=== PATIENT | female | born 1945 | race Caucasian/White ===

== ENCOUNTER → 2018-09-16 | Outpatient (CLI) | payer MEDICARE, OTHER ==
--- NOTE | 2018-09-19 12:48 | MM ---
Reason for exam: screening (asymptomatic). Last mammogram was performed 3 years and 2 months ago. History: Patient is postmenopausal and is nulliparous. Family history of breast cancer in maternal cousin. Benign left mammotome panel of the left breast, May 18, 2012. Benign core biopsy of the right breast. MG Screening Mammo w CAD Bilateral CC, MLO, and XCCL view(s) were taken. Prior study comparison: July 28, 2015, bilateral MG screening mammo w CAD. June 20, 2014, bilateral MG diagnostic mammo w CAD ELOISA. There are scattered fibroglandular densities. Bilateral previous mammotome biopsies. Benign vascular calcifications. No significant changes when compared with prior studies. ASSESSMENT: Negative, BI-RAD 1 RECOMMENDATION: Routine screening mammogram of both breasts in 1 year.
== END ==
LOC: RADMAMWWP 10:30
PROVIDERS: ATTEND Family Medicine
DX: Z12.31 Encounter for screening mammogram for malignant neoplasm of breast (principal)
CPT/HCPCS: 77067

== ENCOUNTER → 2020-11-03 | Outpatient (CLI) | payer MEDICARE ==
[2020-11-03 10:27] LABS: ALT 17 U/L (4-34); AST 20 U/L (14-36); Cholesterol 136 mg/dL (<200); HDL Cholesterol 47 mg/dL (40-60); LDL Cholesterol,Calculated 73 mg/dL (0-99); Triglycerides 79 mg/dL (<150)
== END | disposition home or self-care (01) ==
LOC: LABWHC1 08:49
PROVIDERS: ATTEND Internal Medicine Cardiovascular Disease
DX: E78.2 Mixed hyperlipidemia (principal)
CPT/HCPCS: 36415; 80061; 84450; 84460

== ENCOUNTER → 2022-05-17 | Outpatient (CLI) | payer MEDICARE ==
[2022-05-17 19:12] LABS: ALT 11 U/L (8-44); AST 17 U/L (13-35); Chol/HDL Ratio 3.27 Ratio; LDL Cholesterol,Calculated 71.9 mg/dL (0.0-131.0)
== END | disposition home or self-care (01) ==
LOC: LABWHC1 10:38
PROVIDERS: ATTEND Internal Medicine Cardiovascular Disease
DX: E78.2 Mixed hyperlipidemia (principal)
CPT/HCPCS: 36415; 80061; 84450; 84460

== ENCOUNTER → 2023-12-17 | Outpatient (CLI) | payer MEDICARE ==
[2023-12-17 16:00] LABS: ALT 13 U/L (8-44); AST 19 U/L (13-35); Chol/HDL Ratio 2.87 Ratio; LDL Cholesterol,Calculated 67.8 mg/dL (0.0-131.0)
== END | disposition home or self-care (01) ==
LOC: LABWHC1 09:15
PROVIDERS: ATTEND Internal Medicine Cardiovascular Disease
DX: E78.2 Mixed hyperlipidemia (principal)
CPT/HCPCS: 36415; 80061; 84450; 84460

== ENCOUNTER 2024-12-07 09:25 | Emergency (ER) | payer MEDICARE, OTHER ==
[2024-12-07 09:38] LABS: Glucose,Whole Blood 78 mg/dL (70-110)
[2024-12-07 09:57] LABS: Basophils # (A) 0.02 10*3/uL (0.00-0.10); Basophils % (A) 0.2 %; Eosinophils # (A) 0.21 10*3/uL (0.04-0.35); Eosinophils % (A) 2.1 %; HCT 37.7 % (37.2-46.3); HGB 12.6 g/dL (12.0-15.0); Lymphocytes # (A) 0.85 10*3/uL (0.90-5.00); Lymphocytes % (A) 8.3 %; MCH 28.6 pg (27.0-32.0); MCHC 33.4 g/dL (32.0-37.0); MCV 85.5 fL (80.0-97.0); Mean Platelet Volume 8.4 fL (9.5-12.2); Monocytes # (A) 0.52 10*3/uL (0.20-1.00); Monocytes % (A) 5.1 %; Neutrophils # (A) 8.56 10*3/uL (1.80-7.70); Neutrophils % (A) 83.8 %; Platelet Count 251 10*3/uL (140-440); RBC 4.41 10*6/uL (4.10-5.20); WBC 10.21 10*3/uL (4.50-10.00)
[2024-12-07 10:09] LABS: African American GFR (CKD) 79 (>60 ml/min/1.73 sqM); Anion Gap 8 mmol/L; Blood Urea Nitrogen 14 mg/dL (7-17); Calcium 9.5 mg/dL (8.4-10.2); Carbon Dioxide 30 mmol/L (22-30); Chloride 101 mmol/L (98-107); Glucose 76 mg/dL (74-99); Non-African American GFR(CKD) 68 (>60 ml/min/1.73 sqM); Potassium 3.7 mmol/L (3.5-5.1); Sodium 139 mmol/L (137-145)
[2024-12-07 10:13] LABS: Glucose,Whole Blood 126 mg/dL (70-110)
--- NOTE | 2024-12-07 10:35 | ED ---
General Adult HPI - General Chief complaint: Recheck/Abnormal Lab/Rx Stated complaint: abn labs Time Seen by Provider: 12/07/24 09:33 Source: patient, EMS Mode of arrival: EMS - History of Present Illness Initial comments: Dictation was produced using [employer] dictation software. please excuse any grammatical, word or spelling errors. Chief Complaint: 79-year-old female brought in for hypoglycemia History of Present Illness: Patient 79-year-old female presents the emergency d epartment hypoglycemia. Patient took her insulin and also Ozempic. She did eat however niece found patient altered. EMS was called. EMS reported that patient's blood sugar was low. They gave her 2 rounds of oral glucose with stabilization of blood sugar. Patient states she takes NovoLog. Patient denies any symptoms at the bedside. The ROS documented in this emergency department record has been reviewed and confirmed by me. Those systems with pertinent positive or negative responses have been documented in the HPI. All other systems are other negative and/or noncontributory. - Related Data Home Medications Medication Instructions Recorded Confirmed Aspirin [Children's Aspirin] 81 mg PO DAILY 08/06/17 01/16/22 Atenolol/Chlorthalidone 1 tab PO DAILY 08/06/17 01/16/22 [Atenolol-Chlorthalidone 50-25] Bimatoprost [Lumigan .01% Ophth 1 drop BOTH EYES HS 08/06/17 01/16/22 Soln] Budesonide/Formoterol Fumarate 1 puff INHALATION BID 08/06/17 01/16/22 [Symbicort 80-4.5 Mcg Inhaler] Ferrous Sulfate 140 mg PO DAILY 08/06/17 01/16/22 Furosemide [Lasix] 20 mg PO DAILY 08/06/17 01/16/22 Gabapentin [Neurontin] 100 mg PO QID 08/06/17 01/16/22 Insuln Asp Prt/Insulin Aspart 35 unit SQ HS 08/06/17 01/16/22 [NovoLOG MIX 70-30 VIAL] Insuln Asp Prt/Insulin Aspart 70 unit SQ QAM 08/06/17 01/16/22 [NovoLOG MIX 70-30 VIAL] Isosorbide Mononitrate ER [Imdur] 30 mg PO QAM 08/06/17 01/16/22 Levothyroxine Sodium 25 mcg PO QAM 08/06/17 01/16/22 Losartan [Cozaar] 50 mg PO W/SUPPER 08/06/17 01/16/22 Lovastatin [Mevacor] 40 mg PO W/SUPPER 08/06/17 01/16/22 Potassium Chloride [Klor-Con 10] 10 meq PO TID 08/06/17 01/16/22 rOPINIRole HCL [Requip] 0.25 mg PO HS 08/06/17 01/16/22 Ergocalciferol [Vitamin D2 (1250 2,500 mcg PO Q30D 01/16/22 01/16/22 Mcg = 52552 Iu)] Omeprazole 20 mg PO DAILY 01/16/22 01/16/22 allopurinoL [Zyloprim] 100 mg PO DAILY 01/16/22 01/16/22 Allergies Allergy/AdvReac Type Severity Reaction Status Date / Time No Known Allergies Allergy Verified 01/16/22 15:31 Review of Systems ROS Statement: Those systems with pertinent positive or pertinent negative responses have been documented in the HPI. ROS Other: All systems not noted in ROS Statement are negative. Past Medical History Past Medical History: Dementia, Diabetes Mellitus, Eye Disorder, Hyperlipidemia, Hypertension, Thyroid Disorder Additional Past Medical History / Comment(s): Glaucoma. Sinus problems. Neuropathy in feet. History of Any Multi-Drug Resistant Organisms: None Reported Past Surgical History: Orthopedic Surgery Additional Past Surgical History / Comment(s): Carpal tunnel surgery, bilateral cataracts surgery. Past Anesthesia/Blood Transfusion Reactions: No Reported Reaction Date of Last Stent Placement:: unk Past Psychological History: No Psychological Hx Reported Smoking Status: Never smoker Past Alcohol Use History: None Reported Past Drug Use History: None Reported - Past Family History Mother Family Medical History: Unable to Obtain General Exam - General Exam Comments Initial Comments: PHYSICAL EXAM: General Impression: Alert and oriented x3, not in acute distress HEENT: Normocephalic atraumatic, extra-ocular movements intact, pupils equal and reactive to light bilaterally, mucous membranes moist. Cardiovascular: Heart regular rate and rhythm Chest: Able to complete full sentences, no retractions, no tachypnea Abdomen: abdomen soft, non-tender, non-distended, no organomegaly Musculoskeletal: Pulses present and equal in all extremities, no peripheral edema Motor: no focal deficits noted Neurological: CN II-XII grossly intact, no focal motor or sensory deficits noted Skin: Intact with no visualized rashes Psych: Normal affect and mood Course Vital Signs 12/07/24 12/07/24 12/07/24 09:32 09:42 10:40 Temperature 97.6 F Pulse Rate 89 85 85 Respiratory 18 14 14 Rate Blood Pressure 154/68 131/64 O2 Sat by Pulse 101 H 99 98 Oximetry 12/07/24 11:50 Temperature Pulse Rate 81 Respiratory 12 Rate Blood Pressure 127/54 O2 Sat by Pulse 98 Oximetry EKG Findings - EKG Comments: EKG Findings:: My EKG interpretation: Ventricular rate 82, sinus rhythm. 194, cures 90, QTc 412. No AK prolongation, no QTC prolongation, no ST or T-wave changes noted. Overall, this EKG is unremarkable Medical Decision Making - Medical Decision Making Was pt. sent in by a medical professional or institution ([facility], [employer], urgent care, hospital, or [place] health care facility...) When possible be specific @ -No Did you speak to anyone other than the patient for history (EMS, parent, family, police, friend...)? What history was obtained from this source @ -No Did you review nursing and triage notes (agree or disagree)? Why? @ -I reviewed and agree with nursing and triage notes Were old charts reviewed (outside hosp., previous admission, EMS record, old E KG, old radiological studies, urgent care reports/EKG's, [place] health care facility records)? Report findings @ -No old charts were reviewed Differential Diagnosis (chest pain, altered mental status, abdominal pain women, abdominal pain men, vaginal bleeding, musculoskeletal, weakness, fever, dyspnea, syncope, headache, dizziness, GI bleed, back pain, seizure, CVA, palpatations, mental health)? @ -Differential Altered Mental Status: Hypoglycemia, DKA, hypercapnia, ETOH, overdose, CO poisoning, trauma, myxedema coma, HTN encephalopathy, infection, encephalitis, psychosis, intercranial hemorrhage, hepatic encephalopathy, meningitis, CVA, this is not meant to be an all-inclusive list EKG interpreted by me (3pts min.). @ -See above X-rays interpreted by me (1pt min.). @ -None done CT interpreted by me (1pt min.). @ -None done U/S interpreted by me (1pt. min.). @ -None done What testing was considered but not performed or refused? (CT, X-rays, U/S, labs)? Why? @ -None What meds were considered but not given or refused? Why? @ -None Was smoking cessation discussed for >3mins.? @ -No Were there social determinants of health that impacted care today? How? (Homelessness, low income, unemployed, alcoholism, drug addiction, transportation, low edu. Level, literacy, decrease access to med. care, shelter, rehab)? @ -No Was there de-escalation of care discussed even if they declined (Discuss DNR or withdrawal of care, Hospice)? DNR status @ -No What co-morbidities impacted this encounter? (DM, HTN, Smoking, COPD, CAD, Cancer, CVA, ARF, Chemo, Hep., AIDS, mental health diagnosis, sleep apnea, morbid obesity)? @ -None Was patient admitted / discharged? Hospital course, mention meds given and route, prescriptions, significant lab abnormalities, going to OR and other pertinent info. @ -79-year-old female presents with hyperglycemia. Hypoglycemia corrected by EMS. Patient monitored in the emergency department with stable blood glucose levels. Patient tolerating oral intake. Vitals unremarkable. Labs are within acceptable limits. Patient discharged. They do have a glucometer at home. Return precautions discussed. Did you discuss the management of the patient with other professionals (professionals i.e. , PA, [employer], lab, RT, psych nurse, social worker clinical, manager employee relations, teacher, navy airspace officer, rn case mgr)? Give summary @ -No Was critical care preformed (if so, how long)? @ -No Undiagnosed new problem with uncertain prognosis? @ -No Drug Therapy requiring intensive monitoring for toxicity (Heparin, Nitro, Insulin, Cardizem)? @ -No Were any procedures done? @ -No Diagnosis/symptom? Acute, or Chronic, or Acute on Chronic? Uncomplicated (without systemic symptoms) or Complicated (systemic symptoms)? @ -Hypoglycemic episode Side effects of treatment? @ -No Exacerbation, Progression, or Severe Exacerbation? @ -No Poses a threat to life or bodily function? How? (Chest pain, USA, MS, pneumonia, PE, COPD, DKA, ARF, appy, cholecystitis, CVA, Diverticulitis, Homicidal, Suicidal, threat to staff... and all critical care pts) @ -yes - Lab Data Result diagrams: 12/07/24 09:42 12/07/24 09:42 Lab Results 12/07/24 12/07/24 12/07/24 Range/Units 09:33 09:42 09:42 WBC 10.21 H (4.50-10.00) 10*3/uL RBC 4.41 (4.10-5.20) 10*6/uL Hgb 12.6 (12.0-15.0) g/dL Hct 37.7 (37.2-46.3) % MCV 85.5 (80.0-97.0) fL MCH 28.6 (27.0-32.0) pg MCHC 33.4 (32.0-37.0) g/dL Plt Count 251 (140-440) 10*3/uL MPV 8.4 L (9.5-12.2) fL Immature Gran % (Auto) 0.5 % Neutrophils % 83.8 % Lymphocytes % 8.3 % Monocytes % 5.1 % Eosinophils % 2.1 % Basophils % 0.2 % Immature Gran # 0.05 H (0.00-0.04) 10*3/uL Neutrophils # 8.56 H (1.80-7.70) 10*3/uL Lymphocytes # 0.85 L (0.90-5.00) 10*3/uL Monocytes # 0.52 (0.20-1.00) 10*3/uL Eosinophils # 0.21 (0.04-0.35) 10*3/uL Basophils # 0.02 (0.00-0.10) 10*3/uL Sodium 139 (137-145) mmol/L Potassium 3.7 (3.5-5.1) mmol/L Chloride 101 (98-107) mmol/L Carbon Dioxide 30 (22-30) mmol/L Anion Gap 8 mmol/L BUN 14 (7-17) mg/dL Creatinine 0.82 (0.52-1.04) mg/dL Est GFR (CKD-EPI)AfAm 79 (>60 ml/min/1.73 sqM) Est GFR (CKD-EPI)NonAf 68 (>60 ml/min/1.73 sqM) Glucose 76 (74-99) mg/dL POC Glucose (mg/dL) 78 (70-110) mg/dL POC Glu Customer Consultant ID Boogie Espinozacie Calcium 9.5 (8.4-10.2) mg/dL 12/07/24 12/07/24 12/07/24 Range/Units 10:11 11:11 11:43 WBC (4.50-10.00) 10*3/uL RBC (4.10-5.20) 10*6/uL Hgb (12.0-15.0) g/dL Hct (37.2-46.3) % MCV (80.0-97.0) fL MCH (27.0-32.0) pg MCHC (32.0-37.0) g/dL Plt Count (140-440) 10*3/uL MPV (9.5-12.2) fL Immature Gran % (Auto) % Neutrophils % % Lymphocytes % % Monocytes % % Eosinophils % % Basophils % % Immature Gran # (0.00-0.04) 10*3/uL Neutrophils # (1.80-7.70) 10*3/uL Lymphocytes # (0.90-5.00) 10*3/uL Monocytes # (0.20-1.00) 10*3/uL Eosinophils # (0.04-0.35) 10*3/uL Basophils # (0.00-0.10) 10*3/uL Sodium (137-145) mmol/L Potassium (3.5-5.1) mmol/L Chloride (98-107) mmol/L Carbon Dioxide (22-30) mmol/L Anion Gap mmol/L BUN (7-17) mg/dL Creatinine (0.52-1.04) mg/dL Est GFR (CKD-EPI)AfAm (>60 ml/min/1.73 sqM) Est GFR (CKD-EPI)NonAf (>60 ml/min/1.73 sqM) Glucose (74-99) mg/dL POC Glucose (mg/dL) 126 H 115 H 79 (70-110) mg/dL POC Glu Customer Consultant ID November Guilherme Desir Calcium (8.4-10.2) mg/dL 12/07/24 Range/Units 12:30 WBC (4.50-10.00) 10*3/uL RBC (4.10-5.20) 10*6/uL Hgb (12.0-15.0) g/dL Hct (37.2-46.3) % MCV (80.0-97.0) fL MCH (27.0-32.0) pg MCHC (32.0-37.0) g/dL Plt Count (140-440) 10*3/uL MPV (9.5-12.2) fL Immature Gran % (Auto) % Neutrophils % % Lymphocytes % % Monocytes % % Eosinophils % % Basophils % % Immature Gran # (0.00-0.04) 10*3/uL Neutrophils # (1.80-7.70) 10*3/uL Lymphocytes # (0.90-5.00) 10*3/uL Monocytes # (0.20-1.00) 10*3/uL Eosinophils # (0.04-0.35) 10*3/uL Basophils # (0.00-0.10) 10*3/uL Sodium (137-145) mmol/L Potassium (3.5-5.1) mmol/L Chloride (98-107) mmol/L Carbon Dioxide (22-30) mmol/L Anion Gap mmol/L BUN (7-17) mg/dL Creatinine (0.52-1.04) mg/dL Est GFR (CKD-EPI)AfAm (>60 ml/min/1.73 sqM) Est GFR (CKD-EPI)NonAf (>60 ml/min/1.73 sqM) Glucose (74-99) mg/dL POC Glucose (mg/dL) 101 (70-110) mg/dL POC Glu Customer Consultant ID Boogie Playcie Calcium (8.4-10.2) mg/dL Disposition Clinical Impression: Hypoglycemia Disposition: HOME SELF-CARE Condition: Fair Instructions (If sedation given, give patient instructions): Hypoglycemia in a Person with Diabetes (ED) Is patient prescribed a controlled substance at d/c from ED?: No Referrals: None,Stated [REFERRING] - 1-2 days Time of Disposition: 12:40
[2024-12-07 11:15] LABS: Glucose,Whole Blood 115 mg/dL (70-110)
[2024-12-07 11:44] LABS: Glucose,Whole Blood 79 mg/dL (70-110)
[2024-12-07 12:33] LABS: Glucose,Whole Blood 101 mg/dL (70-110)
[2024-12-07 13:10] VITALS: BP 158/86; PULSE 84; RESP 19; TEMP 98.6
== END 2024-12-07 13:10 | disposition home or self-care (01) ==
LOC: EC 09:25
DX: E11.649 Type 2 diabetes mellitus with hypoglycemia without coma (principal); Z79.4 Long term (current) use of insulin
CPT/HCPCS: 36415; 80048; 85025; 93005; 99284

== ENCOUNTER → 2024-12-24 | Outpatient (CLI) | payer MEDICARE, OTHER ==
[2024-12-24 11:10] LABS: ALT 12 U/L (8-44); AST 17 U/L (13-35); Chol/HDL Ratio 2.83 Ratio; LDL Cholesterol,Calculated 64.8 mg/dL (0.0-131.0)
== END | disposition home or self-care (01) ==
LOC: LABWHC1 07:27
PROVIDERS: ATTEND Internal Medicine Cardiovascular Disease
DX: E78.2 Mixed hyperlipidemia (principal)
CPT/HCPCS: 36415; 80061; 84450; 84460